=== PATIENT | female | born 1975 | race African-American/Black ===

== ENCOUNTER 2023-07-24 12:31 | Emergency (ER) | payer MEDICARE, SELFPAY ==
[2023-07-24 12:49] VITALS: BP 152/104; PULSE 93; RESP 19; TEMP 36.5; O2SAT 99
--- NOTE | 2023-07-24 13:10 | ED.GENADULT ---
HPI - General Adult General Chief complaint: Skin/Abscess/Foreign Body Stated complaint: boil forehead Time Seen by Provider: 07/24/23 13:05 Source: patient Mode of arrival: ambulatory Limitations: no limitations History of Present Illness HPI narrative: This is a 47-year-old female who presents to the ED with chief complaint of left facial pain and swelling for the past week. Reports that she started with a ?boil? to the left superior forehead. It came to a head and she was able to have that area drained. She reports subsequently there is another area of swelling to the forehead that started and the swelling seems to be spreading. However this area did not come to a head. Reports the swelling is spreading throughout the left side of the face around the eye. Reports pain throughout the left face in towards the left ear. Denies pain with eye movements. Denies fevers, chills, nausea, vomiting, vision change. Related Data Allergies Allergy/AdvReac Type Severity Reaction Status Date / Time No Known Allergies Allergy Verified 07/24/23 12:33 Review of Systems Review of Systems: All systems as dictated in HPI Exam Narrative: GENERAL: Well-appearing, well-nourished, and in no acute distress. HEAD: Normocephalic, atraumatic. EYES: PERRLA and EOMI. No pain with EOMs. ENT: Nares clear, no rhinorrhea or epistaxis. Mucous membranes moist. Oropharynx without tonsillar hypertrophy exudate or other lesions. NECK: Supple. No adenopathy or masses. CHEST: No respiratory distress. Clear to auscultation. No wheezes rales or rhonchi HEART: Regular rate and rhythm. No murmur heard. Normal peripheral pulses. ABDOMEN: Soft, nontender, nondistended, normal active bowel sounds. MSK: Normal range of motion. No edema. SKIN: Moderate warmth to the left forehead. Mild erythema. No discrete or palpable abscess. NEURO: Alert and oriented x3. No focal deficits. PSYCH: Normal mood and affect. Course Vital Signs Vital signs: Vital Signs Temperature 97.7 F 07/24/23 12:49 Pulse Rate 93 07/24/23 12:49 Respiratory Rate 19 07/24/23 12:49 Blood Pressure 152/104 H 07/24/23 12:49 Pulse Oximetry 99 07/24/23 12:49 Oxygen Delivery Room Air 07/24/23 12:49 Temperature 97.7 F 07/24/23 12:49 Pulse Rate 93 07/24/23 12:49 Respiratory Rate 19 07/24/23 12:49 Blood Pressure 152/104 H 07/24/23 12:49 Pulse Oximetry 99 07/24/23 12:49 Oxygen Delivery Room Air 07/24/23 12:49 Medical Decision Making MDM Narrative Medical decision making narrative: This is a 47-year-old female who presents to the ED for chief complaint of left-sided facial erythema, swelling and pain for the past couple of days. Reports the area is spreading throughout the face. Vitals are normal. Afebrile. Exam remarkable for the above. No pain with EOMs or difficulty with vision. Exam is consistent with periorbital cellulitis. No signs of deep space infection. Normal white count on CBC. CMP and CRP normal. She was given Toradol and a round of antibiotics IV here. She will be given prescriptions for Bactrim and cefdinir instructed to follow-up PCP. Pt will be discharged in stable condition. Return precautions given and supportive measures discussed. Pt is understanding and agreeable with plan for discharge and follow-up with PCP. Vital Signs Vital Signs: Vital Signs Temperature 97.7 F 07/24/23 12:49 Pulse Rate 93 07/24/23 12:49 Respiratory Rate 19 07/24/23 12:49 Blood Pressure 152/104 H 07/24/23 12:49 Pulse Oximetry 99 07/24/23 12:49 Oxygen Delivery Room Air 07/24/23 12:49 Temperature 97.7 F 07/24/23 12:49 Pulse Rate 93 07/24/23 12:49 Respiratory Rate 19 07/24/23 12:49 Blood Pressure 152/104 H 07/24/23 12:49 Pulse Oximetry 99 07/24/23 12:49 Oxygen Delivery Room Air 07/24/23 12:49 Lab Data 07/24/23 13:45 07/24/23 13:45 Labs: Lab Results
[2023-07-24] MEDS: KETOROLAC 15 MG/ML VIAL (*BKC) IV PUSH (13:43)
[2023-07-24 13:53] LABS: Basophils Percent Auto 0.4 % (0.2-1.2); Eosinophils Absolute Auto 0.1 K/mm3 (0-0.3); Eosinophils Percent Auto 0.6 % (0-4.4); Hematocrit 41.9 % (37.0-47.0); Hemoglobin 13.2 g/dL (12.0-15.0); Immature Granulocyte Absolute 0.02 K/mm3 (0.00-0.031); Immature Granulocyte Percent A 0.2 % (0-0.5); Lymphocytes Absolute Auto 3.15 K/mm3 (0.9-3.2); Lymphocytes Percent Auto 31.4 % (18.3-44.2); Mean Corpuscular HGB Conc 31.5 g/dl (32-36); Mean Corpuscular Volume 98.4 fl (80-100); Mean Platelet Volume 10.1 fl (7.4-10.4); Monocytes Absolute Auto 0.6 K/mm3 (0.1-0.6); Monocytes Percent Auto 5.5 % (2.6-8.5); Neutrophils Absolute Auto 6.2 K/mm3 (1.3-6.7); Neutrophils Percent Auto 61.9 % (45.5-73.1); Platelet Count Result 306 k/mm3 (150-375); Red Blood Count 4.26 M/mm3 (4.2-5.4); Red Cell Distribution Width 13.6 % (11.5-14.5)
[2023-07-24 14:29] LABS: Alanine Aminotransferase 17 U/L (6-35); Albumin Level 4.3 g/dL (3.5-5.1); Alkaline Phosphatase 60 U/L (38-126); Anion Gap 8 mmol/L (8-16); Aspartate Amino Transferase 30 U/L (14-36); Bilirubin,Total 0.9 mg/dL (0.2-1.3); Blood Urea Nitrogen 15 mg/dL (7-17); CRP 0.8 mg/dL (<1.0); Calcium 9.4 mg/dL (8.4-10.2); Carbon Dioxide 24 mmol/L (22-30); Chloride 106 mmol/L (98-107); Estimated CRCL calculation 181 ml/min; Estimated Glomerular Filt Rate > 60; Glucose 98 mg/dL (65-110); Potassium 4.2 mmol/L (3.4-5.0); Sodium 138 mmol/L (137-145)
[2023-07-24 14:45] VITALS: BP 174/109; PULSE 81; RESP 20; TEMP 36.7; O2SAT 99
== END 2023-07-24 15:02 | disposition home or self-care (01) ==
LOC: ANHED 13:32
PROVIDERS: Emergency Provider Physician Assistant
DX: L03.213 Periorbital cellulitis (principal)
CPT/HCPCS: 36415; 80053; 85025; 86140; 96365; 96375; 99284; J0696; J1885

== ENCOUNTER 2023-07-25 05:47 | Inpatient (IN) | payer MEDICARE, SELFPAY ==
[2023-07-25] VITALS (9 sets, daily range): BP systolic 143–188; BP diastolic 79–105; PULSE 63–94; RESP 16–20; TEMP 36.3–36.7; O2SAT 98–100; BMI 58.2
--- NOTE | ~2023-07-25 | CT_ITS ---
EXAMINATION: CT facial bones w con DATE: 07/25/2023 09:36 INDICATION: Left periorbital cellulitis TECHNIQUE: Computed tomography (CT) of the facial bones and maxillofacial region was performed withou t intravenous contrast. Automated exposure control and iterative reconstruction technique were employ ed. Exam dose: 817.17 mGy-cm total exam DLP. COMPARISON: None. FINDINGS: Moderately prominent left periorbital soft tissue swelling is noted. There is soft tissue i nfiltration of the left facial subcutaneous fat at posterior tissues in addition to asymmetric promin ent soft tissue thickening of the left parotid masseteric fascia. The orbital globes appear symmetric and intact. No intraconal or extraconal masses are noted. Optic n erves and extraocular muscles appear normal. No facial bone fracture or bone destruction. The frontal sinuses, ethmoid air cells, sphenoid and max illary sinuses are normally developed and aerated. IMPRESSION: Left periorbital soft tissue swelling, subcutaneous soft tissue infiltration of the left facial subcutaneous tissues and asymmetric prominent soft tissue thickening of the left parotid mass eteric fascia No orbital mass lesion Reviewed, dictated and finalized at [facility]. Reviewed, dictated and finalized at location A. MACHINE REPAIRER IMPRESSION: Left periorbital soft tissue swelling, subcutaneous soft tissue in filtration of the left facial subcutaneous tissues and asymmetric prominent sof t tissue thickening of the left parotid masseteric fascia No orbital mass lesion
--- NOTE | ~2023-07-25 | XR_ITS ---
XR chest 1V portable DATE: 07/25/2023 09:22 INDICATION: Leg edema TECHNIQUE: Portable upright AP chest on 07/25/2023 at 0911 hours COMPARISON: None FINDINGS: Cardiac and mediastinal sweats. Unremarkable for AP projection. No pulmonary infiltrate or consolidation, pleural effusion or pulmonary vascular congestion or pneumothorax is evident. Radiopaque surgical clip or marker overlying the lower lateral left chest/left breast. Degenerative spurring of the thoracic spine. IMPRESSION: No active cardiopulmonary disease Reviewed, dictated and finalized at location A. ET TEST FIRE WORKER
--- NOTE | ~2023-07-25 | US_ITS ---
EXAMINATION: US venous doppler [facility] DATE: 07/26/2023 17:31 INDICATION: Lower limb edema. TECHNIQUE: Grayscale ultrasound images without and with compression and Doppler ultrasound images of the bilateral lower extremity veins were obtained. COMPARISON: None. FINDINGS: The visualized portions of right common femoral vein, profunda (deep) femoral vein, femoral vein, pop liteal vein, peroneal veins, posterior tibial veins, and greater saphenous vein outflow are patent. The visualized portions of left common femoral vein, profunda femoral vein, femoral vein, popliteal v ein, peroneal veins, posterior tibial veins, and greater saphenous vein outflow are patent. IMPRESSION: 1. No deep venous thrombosis. Reviewed, dictated and finalized at location E.
--- NOTE | 2023-07-25 07:27 | ED.GENADULT ---
HPI - General Adult General Chief complaint: Unspecified Stated complaint: cellulitis to face Time Seen by Provider: 07/25/23 07:12 Source: patient Mode of arrival: ambulatory Limitations: no limitations History of Present Illness HPI narrative: 47 years old female complaining of left forehead boils started 1 week ago, subsequently started having swelling of the left side of the upper face including upper and lower eyelids, was seen in our emergency room yesterday and was discharged on cefdinir and sulfa, workup this morning with the left eyelid is more swollen and closed with pain moving the eyeball. Also complaining of edema lower extremity for while. Patient is healthy otherwise does not take medicine at home. Related Data Allergies Allergy/AdvReac Type Severity Reaction Status Date / Time No Known Allergies Allergy Verified 07/24/23 12:33 Review of Systems Review of Systems: All systems reviewed & are unremarkable except as noted in HPI and below Exam Narrative: General appearance: Well-developed, well-nourished Skin: Normal color, facial exam showed diffuse soreness and tenderness left forehead and left upper face, extensive swelling of the left upper and left lower eyelid, unable to open the left eye, erythematous changes Head: Normocephalic, nontraumatic Eyes: Clear conjunctiva ENT: Oropharynx normal, ears normal, nose normal Neck: Supple, nontender Chest and respiratory: Airway patent, no respiratory distress, no accessory muscle use Heart: Regular rate/rhythm Abdomen: Soft, nontender, no organomegaly, quiet bowel sounds Vascular: Normal peripheral pulses, normal capillary refill. Musculoskeletal: Normal range of motion, nontender back Neurologic: Alert and oriented ?3, GARNISHMENT SPECIALIST is normal as tested, no gross motor deficit Course Course Emergency Course: IMPROVING Vital Signs Vital signs: Vital Signs Temperature 36.3 C L 07/25/23 05:51 Pulse Rate 94 07/25/23 05:51 Respiratory Rate 20 07/25/23 05:51 Blood Pressure 188/105 H 07/25/23 05:51 Pulse Oximetry 99 07/25/23 05:51 Oxygen Delivery Room Air 07/25/23 05:51 Temperature 36.3 C L 07/25/23 05:51 Pulse Rate 72 07/25/23 06:42 Respiratory Rate 20 07/25/23 05:51 Blood Pressure 188/105 H 07/25/23 05:51 Pulse Oximetry 99 07/25/23 05:51 Oxygen Delivery Room Air 07/25/23 05:51 Medical Decision Making MDM Narrative Medical decision making narrative: PATIENT CAME BACK TO OUR EMERGENCY ROOM WITH WORSENING LEFT FACIAL PAIN, WAS SEEN IN OUR EMERGENCY ROOM YESTERDAY AND GOT DISCHARGED ON SULFA AND CEFDINIR WITH A DIAGNOSIS OF PERIORBITAL CELLULITIS. DIFFERENTIAL DIAGNOSIS PERIORBITAL CELLULITIS, ORBITAL CELLULITIS, FAILURE OF OUTPATIENT TREATMENT, PROGRESSION OF THE PERIORBITAL CELLULITIS BLOOD WORKUP TODAY SHOWED NO ACUTE ABNORMALITIES, LACTIC ACID IS NORMAL, CT FACE WITH IV CONTRAST SHOWED SOFT TISSUE SWELLING CONSISTENT WITH PERIORBITAL CELLULITIS, PATIENT WAS STARTED ON IV VANCOMYCIN AND ZOSYN, ADMIT TO HOSPITALIST. Differential Diagnosis Differential Diagnosis: ABOVE Vital Signs Vital Signs: Vital Signs Temperature 36.3 C L 07/25/23 05:51 Pulse Rate 94 07/25/23 05:51 Respiratory Rate 20 07/25/23 05:51 Blood Pressure 188/105 H 07/25/23 05:51 Pulse Oximetry 99 07/25/23 05:51 Oxygen Delivery Room Air 07/25/23 05:51 Temperature 36.3 C L 07/25/23 05:51 Pulse Rate 72 07/25/23 06:42 Respiratory Rate 20 07/25/23 05:51 Blood Pressure 188/105 H 07/25/23 05:51 Pulse Oximetry 99 07/25/23 05:51 Oxygen Delivery Room Air 07/25/23 05:51 Lab Data 07/25/23 08:26 07/25/23 08:26
--- NOTE | 2023-07-25 07:32 | ECG_ITS ---
Measurements Intervals [place] Rate: 66 P: 30 NC: 181 QRS: -4 QRSD: 88 T: 8 QT: 405 QTc: 426 Interpretive Statements SINUS RHYTHM DELAYED PRECORDIAL R/S TRANSITION NONSPECIFIC T-WAVE ABNORMALITY- ANTEROLAT/INF LEADS BORDERLINE ECG NO PREVIOUS ECG AVAILABLE FOR COMPARISON Electronically Signed On 07-25-2023 13:07:56 CLINICAL DIETITIAN by Epi Ware D.O.
[2023-07-25 08:33] LABS: Basophils Percent Auto 0.5 % (0.2-1.2); Eosinophils Absolute Auto 0.1 K/mm3 (0-0.3); Eosinophils Percent Auto 0.8 % (0-4.4); Hematocrit 41.7 % (37.0-47.0); Hemoglobin 13.5 g/dL (12.0-15.0); Immature Granulocyte Absolute 0.02 K/mm3 (0.00-0.031); Immature Granulocyte Percent A 0.3 % (0-0.5); Lymphocytes Absolute Auto 2.71 K/mm3 (0.9-3.2); Lymphocytes Percent Auto 35.2 % (18.3-44.2); Mean Corpuscular HGB Conc 32.4 g/dl (32-36); Mean Corpuscular Hemoglobin 31.7 pg (26-34); Mean Corpuscular Volume 97.9 fl (80-100); Monocytes Absolute Auto 0.4 K/mm3 (0.1-0.6); Monocytes Percent Auto 4.9 % (2.6-8.5); Neutrophils Absolute Auto 4.5 K/mm3 (1.3-6.7); Neutrophils Percent Auto 58.3 % (45.5-73.1); Platelet Count Result 280 k/mm3 (150-375); Red Blood Count 4.26 M/mm3 (4.2-5.4); Red Cell Distribution Width 13.5 % (11.5-14.5); White Blood Count 7.7 K/mm3 (4.5-10.0)
[2023-07-25 08:43] LABS: Alanine Aminotransferase 15 U/L (6-35); Albumin Level 4.3 g/dL (3.5-5.1); Alkaline Phosphatase 72 U/L (38-126); Anion Gap 8 mmol/L (8-16); Aspartate Amino Transferase 23 U/L (14-36); Bilirubin,Total 0.7 mg/dL (0.2-1.3); Blood Urea Nitrogen 14 mg/dL (7-17); Calcium 9.2 mg/dL (8.4-10.2); Carbon Dioxide 23 mmol/L (22-30); Chloride 106 mmol/L (98-107); Estimated CRCL calculation 154 ml/min; Estimated Glomerular Filt Rate > 60; Glucose 95 mg/dL (65-110); Potassium 3.8 mmol/L (3.4-5.0); Sodium 137 mmol/L (137-145)
[2023-07-25 08:49] LABS: Partial Thromboplastin Time 28.5 SECONDS (22.3-36.8)
[2023-07-25 08:56] LABS: CRP 2.8 mg/dL (<1.0); NT Pro B Type Natriuretic Pept 463 pg/mL (19.9-100)
[2023-07-25 09:24] LABS: Lactic Acid Reflex 1.1 mmol/L (0.7-2.0)
[2023-07-25 10:11] LABS: Appearance Urine Clear (Clear); Bilirubin Urine Negative (Negative); Blood Urine Negative (Negative); Color Urine Yellow (Yellow); Glucose Urine UA Negative (Negative); Ketones Urine Negative (Negative); Leukocyte Esterase Ur Negative LEU/UL (Negative); Nitrate Urine Negative (Negative); Protein Urine Negative (Negative); Urobilinogen Urine 0.2 mg/dL (<2.0)
[2023-07-25] MEDS: KETOROLAC 30 MG/ML VIAL (*BKC) IV PUSH ×2 (10:13→20:58)
[2023-07-25] MEDS: PIPERACILLN/TAZ 3.375GM/NS50ML 3.375 GM/50 ML BAG IVPB (10:17)
[2023-07-25 10:28] LABS: Add Urine Microscopic? NO; Specific Grav Ur 1.048 (1.001-1.035)
[2023-07-25] MEDS: VANCOMYCIN 1,500 MG/NS 500 ML 1,500 MG/500 ML BAG 250 MG IVPB (11:00)
[2023-07-25] MEDS: SODIUM CHLORIDE 0.9% IV 1,000 ML 125 ML IV CONT (12:49)
[2023-07-25] MEDS: ACETAMINOPHEN 325 MG TABLET 650 MG PO ×2 (12:49→23:32)
--- NOTE | 2023-07-25 12:55 | ADMGEN ---
This patient, Landon Ant Crowder, was admitted to Virtual Bed 3rd Floor-1. Patient/family oriented to hospital policies and general routines including ID bracelet, bed and alarms, visiting hours, pain management, procedures, bathroom and other care routines, personal items, smoking policy, room service/diet, and visiting hours. Information on how to activate the Rapid Response Team has been discussed. Patient/Family are encouraged to report perceived risks to care and to ask questions if they do not understand what they are told or what they should do.
--- NOTE | 2023-07-25 13:44 | PM.IMHP ---
H&P: HPI History of Present Illness Date/Time: 07/25/23 13:44 Chief Complaint: Swelling of face Narrative: 47 years old female complaining of left forehead boils started 1 week ago, subsequently started having swelling of the left side of the upper face including upper and lower eyelids, was seen in our emergency room yesterday and was discharged on cefdinir and sulfa, workup this morning with the left eyelid is more swollen and closed with pain moving the eyeball.? Also complaining of edema lower extremity for while.? Patient is healthy otherwise does not take medicine at home. Review of Systems Review of Systems: - CONSTITUTIONAL: Denies weight loss, fever and chills. - HEENT: Denies changes in vision and hearing - RESPIRATORY: Denies SOB and cough. - CV: Denies palpitations and CP. - GI: Denies abdominal pain, nausea, vomiting and diarrhea. - : Denies dysuria and urinary frequency. - MSK: Denies myalgia and joint pain. - SKIN: Denies rash and pruritus. - NEUROLOGICAL: Denies headache and syncope. - PSYCHIATRIC: Denies recent changes in mood. Denies anxiety and depression. [facility] Family History Family History (Updated 07/25/23 @ 13:04 by Honey Anderson RN) Mother Pneumonia COVID Collapsed lung Sibling Kidney failure Diabetes mellitus Father Congestive cardiac failure Diabetes mellitus Social History Social History Smoking status: Never smoker Alcohol intake: current Drinks per week: 1 Substance use: never Do You Feel Safe in your Home?: Yes Lack of Transportation: No Lack of Food: Never True Current Housing: Decline to Answer Concerned About Future Housing: No Difficulty Paying Gas/Electric Bills: No Difficulty Paying for Meds: No Currently Unemployed: No Education: Decline to Answer Difficulty w/ Childcare or Family Care: No Spiritual care concerns: No Meds Home Medications and Allergies Home Medications Medication Instructions Recorded Confirmed Type No Home Medications 07/25/23 07/25/23 History Allergies Allergy/AdvReac Type Severity Reaction Status Date / Time No Known Allergies Allergy Verified 07/24/23 12:33 Vital Signs Vital Signs - 24 hr 07/25/23 05:51 07/25/23 06:42 07/25/23 07:45 Temperature 97.4 F L 98.0 F Pulse Rate 94 72 72 Respiratory Rate 20 18 Blood Pressure 188/105 H 155/98 H Pulse Oximetry 99 100 Oxygen Delivery Room Air 07/25/23 09:30 07/25/23 11:00 07/25/23 12:25 Temperature Pulse Rate 73 70 74 Respiratory Rate 16 19 18 Blood Pressure 149/100 H 156/99 H 143/92 H Pulse Oximetry 98 98 99 Oxygen Delivery Exam Narrative: General appearance: Well-developed, well-nourished Skin: Normal color, facial exam showed diffuse soreness and tenderness left forehead and left upper face, extensive swelling of the left upper and left lower eyelid, unable to open the left eye, erythematous changes Head: Normocephalic, nontraumatic Eyes: Clear conjunctiva ENT: Oropharynx normal, ears normal, nose normal Neck: Supple, nontender Chest and respiratory: Airway patent, no respiratory distress, no accessory muscle use Heart: Regular rate/rhythm Abdomen: Soft, nontender, no organomegaly, quiet bowel sounds Vascular: Normal peripheral pulses, normal capillary refill. Musculoskeletal: Normal range of motion, nontender back Neurologic: Alert and oriented ?3, AIRSET CASTER is normal as tested, no gross motor deficit ?? H&P: Results Labs Labs: Short CBC 07/25/23 Range/Units 08:26 WBC 7.7 (4.5-10.0) K/mm3 Hgb 13.5 (12.0-15.0) g/dL Hct 41.7 (37.0-47.0) % Plt Count 280 (150-375) k/mm3 BMP 07/25/23 08:26 Sodium 137 Potassium 3.8 Chloride 106 Carbon Dioxide 23 BUN 14 Creatinine 0.60 L Glucose 95 Calcium 9.2 Liver Function 07/25/23 Range/Units 08:26 Total Bilirubin 0.7 (0.2-1.3) mg/d
[2023-07-25] MEDS: ceFAZolin 1 GM/NS 50 ML 1 GM/50 ML BAG IVPB ×2 (13:58→20:45)
[2023-07-25] MEDS: diphenhydrAMINE HCl CAP 25 MG CAPSULE PO (15:13)
[2023-07-25 17:15] LABS: Hemoglobin A1C 5.2 % (<5.7)
--- NOTE | 2023-07-26 03:54 | PC.NURSE ---
Daylight Savings Time For Daylight Savings Time Ending in the Fall - Clocks are moved back. For Daylight Savings Time Beginning in the Spring - Clocks are moved ahead. For [facility], the time of change occurs at 0200 hrs. Time is taken from the restaurant line server. This entry on the patient's chart recognizes the change in time reflected during documentation. Example: 2 entries for vital signs may be charted for 0200 hrs.
[2023-07-26 05:10] VITALS: BP 111/64; PULSE 65; RESP 18; TEMP 36.4; O2SAT 100
[2023-07-26] MEDS: ceFAZolin 1 GM/NS 50 ML 1 GM/50 ML BAG IVPB ×3 (05:27→21:12)
[2023-07-26] MEDS: diphenhydrAMINE HCl INJ 50 MG/ML VIAL 25 MG IV PUSH (05:33)
[2023-07-26 06:20] LABS: Estimated CRCL calculation 154 ml/min; Estimated Glomerular Filt Rate > 60
[2023-07-26 07:31] LABS: Hematocrit 37.4 % (37.0-47.0); Hemoglobin 11.9 g/dL (12.0-15.0); Mean Corpuscular HGB Conc 31.8 g/dl (32-36); Mean Corpuscular Hemoglobin 31.3 pg (26-34); Mean Corpuscular Volume 98.4 fl (80-100); Mean Platelet Volume 10.5 fl (7.4-10.4); Platelet Count Result 262 k/mm3 (150-375); Red Cell Distribution Width 13.6 % (11.5-14.5); White Blood Count 6.8 K/mm3 (4.5-10.0)
[2023-07-26 08:02] LABS: Alanine Aminotransferase 13 U/L (6-35); Albumin Level 3.7 g/dL (3.5-5.1); Alkaline Phosphatase 70 U/L (38-126); Anion Gap 4 mmol/L (8-16); Aspartate Amino Transferase 24 U/L (14-36); Bilirubin,Total 0.4 mg/dL (0.2-1.3); Blood Urea Nitrogen 14 mg/dL (7-17); Calcium 8.9 mg/dL (8.4-10.2); Carbon Dioxide 25 mmol/L (22-30); Chloride 106 mmol/L (98-107); Estimated CRCL calculation 154 ml/min; Estimated Glomerular Filt Rate > 60; Glucose 104 mg/dL (65-110); Magnesium 2.1 mg/dL (1.6-2.3); Potassium 3.8 mmol/L (3.4-5.0); Sodium 135 mmol/L (137-145)
[2023-07-26 08:32] LABS: CRP 2.7 mg/dL (<1.0)
--- NOTE | 2023-07-26 08:43 | PM.IMPN ---
Progress Note: A&P Assessment and Plan (1) Periorbital cellulitis of left eye: Code(s): L03.213 - Periorbital cellulitis Status: Acute Assessment and Plan: 07/25 left facial pain and edema CT noted: Left periorbital soft tissue swelling, subcutaneous soft tissue infiltration of the left facial subcutaneous tissues and asymmetric prominent soft tissue thickening of the left parotid masseteric fascia. No orbital mass lesion patient has photo documentation of the decrease in swelling labs today significant for WBC 6.8, hemoglobin 11.9, sodium 135, potassium 3.8, CRP 2.7. hemoglobin A1c 5.2 IV Ancef continued. possibly convert to p.o. 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 (3) Normal hemoglobin A1c level: Status: Acute Assessment and Plan: 07/25 hemoglobin A1c 5.2 morning glucose level 104 Time Spent With Patient Time with patient: 15 - 25 minutes Subjective Date/time seen: 07/26/23 08:43 Interval history: patient examined at bedside interval assessment as she presented to ED with facial swelling and was subsequently admitted for periorbital cellulitis. today patient expresses that swelling swelling has drastically decreased. she has photo documentation the progression of decreased swelling. patient is states that she has no pain to the eye area at this time, however she admits that her forehead and cheek area are tender. patient expressed that this swelling began to occur after appearance of 2 boils on her forehead. she is a dedicated truck driver and noted that when her eye swelled and she could not see to drive she came to the emergency room. patient also expressed that she has been experiencing bilateral lower extremity edema. Expressed that this comes and goes. patient had elevated BNP in ED of 463. bilateral lower extremity Dopplers and echo ordered. patient expressed that shes aware that she has a sedentary lifestyle, and has a family history of CHF labs today significant for WBC 6.8, hemoglobin 11.9, sodium 135, potassium 3.8, CRP 2.7. hemoglobin A1c 5.2 morning blood pressure 111/64, heart rate 65, temperature 97.6?, O2 saturation 100% room air Review of Systems Review of Systems: All systems reviewed & are unremarkable except as noted in HPI and below Exam Narrative: General appearance: Well-developed, well-nourished, alert Skin: Normal color, facial exam showed diffuse soreness and tenderness left forehead and left upper face, noted swelling of the left upper eyelid, able to open the left eye Head: Normocephalic, nontraumatic Eyes: Clear conjunctiva, EOMI, ENT: Oropharynx normal, ears normal, nose normal Neck: Supple, nontender Chest and respiratory: lungs clear to auscultate bilaterally, no respiratory distress, no accessory muscle use Heart: Regular rate/rhythm Abdomen: Soft, nontender, no organomegaly, quiet bowel sounds Vascular: Normal peripheral pulses, normal capillary refill. +1 bilateral lower extremity edema Musculoskeletal: Normal range of motion, nontender back Neurologic: Alert and oriented ?3, MANAGER OF INTERNATIONAL 2-12 intact, no gross motor deficit ?? Objective Data Vital Signs Vital Signs: Vital Signs - 24 hr 07/25/23 07:45 07/25/23 09:30 07/25/23 11:00 Temperature 98.0 F Pulse Rate 72 73 70 Respiratory Rate 18 16 19 Blood Pressure 155/98 H 149/100 H 156/99 H Pulse Oximetry 100 98 98 Oxygen Delivery 07/25/23 12:25 07/25/23 13:14 07/25/23 15:45 Temperature 97.5 F L Pulse Rate 74 63 Respiratory Rate 18 16 Blood Pressure 143/92 H 144/89 H Pulse Oximetry 99 100 Oxyg
[2023-07-26] MEDS: ENOXAPARIN 40 MG/0.4 ML SYRINGE SUB-Q (09:34)
[2023-07-26 13:51] VITALS: BP 151/92; PULSE 83; RESP 20; TEMP 36.6; O2SAT 96
[2023-07-26] MEDS: diphenhydrAMINE HCl CAP 25 MG CAPSULE PO (17:20)
[2023-07-26 19:55] VITALS: BP 159/96; PULSE 75; RESP 18; TEMP 36.5; O2SAT 99
[2023-07-26] MEDS: KETOROLAC 30 MG/ML VIAL (*BKC) IV PUSH (21:12)
--- NOTE | 2023-07-27 | ECHO_ITS ---
Patient Info Name: Landon Crowder Age: 47 years : 1975 Gender: Female Ht: 66 in Wt: 361 lbs BSA: 2.87 m2 HR: 78 bpm BP: 137 / 65 mmHg Technical Quality: Poor, Fair Exam Date: 07/27/2023 9:33 AM Exam Location: Echo Lab Exam Room: 302 Patient Status: Inpatient Admit Date: 07/25/2023 Staff Ordering Physician: Keturah Barba APRN Inside Sales Trainer: Yancy Santiago RDCS Attending Provider: González Matthew MD Exam Type: CA echo dop color flow w con Study Info Indications - ELEVATED BNP EDEMA Complete two-dimensional, color flow and Doppler transthoracic echocardiogram is performed with contrast to opacify the left ventricle and to improve the deliniation of the left ventricle endocardial borders. Contrast/Agitated Saline Contrast/Ag. Saline: Definity Amount: 2.00 ml Administered By: Yancy Santiago [facility] Existing IV Access: Yes IV Access Condition: patent with no signs of infiltration Reason for Poor Study: patient body habitus Summary 1. Definity contrast administered improved wall motion interpretation. 2. Left ventricular chamber dimension is normal. 3. Left ventricular systolic function is normal, estimated at 60-65%. 4. The left ventricular diastolic function is grade I diastolic dysfunction. 5. E/e' 8 is minimally elevated. 6. There is mild mitral valve regurgitation. 7. There is trace tricuspid valve regurgitation. 8. No pulmonary hypertension, estimated pulmonary arterial systolic pressure is 32 mmHg. Left Ventricle E/e' 8 is minimally elevated. Definity contrast administered improved wall motion interpretation. Left ventricular chamber dimension is normal. Left ventricular systolic function is normal, estimated at 60-65%. The left ventricular diastolic function is grade I diastolic dysfunction. Right Ventricle Right ventricular chamber dimension is normal. Right ventricular systolic function is normal. Left Atria Left atrial chamber dimension is normal. Right Atria Right atrial chamber dimension is normal. Aortic Valve The aortic valve is trileaflet. There is no aortic valve stenosis. There is no aortic valve regurgitation. Pulmonic Valve There is no pulmonic regurgitation. Mitral Valve There is no mitral valve stenosis. There is mild mitral valve regurgitation. Tricuspid Valve There is trace tricuspid valve regurgitation. No pulmonary hypertension, estimated pulmonary arterial systolic pressure is 32 mmHg. Pericardium/Pleural There is no pericardial effusion. Inferior Vena Cava Normal inferior vena cava with >50% collapse upon inspiration consistent with normal right atrial pressure, 5 mmHg. Aorta The aortic root size at the sinus of Valsalva is normal. Left Ventricular Outflow Tract Name Value Normal LVOT 2D LVOT Diameter 2.10 cm LVOT Doppler LVOT Peak Gradient 5 mmHg LVOT Mean Gradient 3 mmHg LVOT VTI 23.35 cm LVOT VTI/AV VTI Ratio 0.84 LVOT Stroke Volume 80.55 ml LVOT CO 16.08 l/min LVOT CI
[2023-07-27 00:05] LABS: Vancomycin Trough < 5.0 ug/mL (10.0-20.0)
[2023-07-27 04:30] VITALS: BP 137/65; PULSE 66; RESP 20; TEMP 36.3; O2SAT 100
[2023-07-27] MEDS: ceFAZolin 1 GM/NS 50 ML 1 GM/50 ML BAG IVPB ×2 (04:53→13:44)
[2023-07-27] MEDS: ACETAMINOPHEN 325 MG TABLET 650 MG PO (04:55)
[2023-07-27 06:25] LABS: Hemoglobin 11.8 g/dL (12.0-15.0); Mean Corpuscular HGB Conc 31.9 g/dl (32-36); Mean Corpuscular Hemoglobin 31.3 pg (26-34); Mean Corpuscular Volume 98.1 fl (80-100); Mean Platelet Volume 10.2 fl (7.4-10.4); Platelet Count Result 259 k/mm3 (150-375); Red Blood Count 3.77 M/mm3 (4.2-5.4); Red Cell Distribution Width 13.6 % (11.5-14.5); White Blood Count 6.2 K/mm3 (4.5-10.0)
[2023-07-27 06:44] LABS: Alanine Aminotransferase 12 U/L (6-35); Albumin Level 3.6 g/dL (3.5-5.1); Alkaline Phosphatase 67 U/L (38-126); Anion Gap 2 mmol/L (8-16); Aspartate Amino Transferase 20 U/L (14-36); Bilirubin,Total 0.4 mg/dL (0.2-1.3); Blood Urea Nitrogen 22 mg/dL (7-17); Calcium 8.7 mg/dL (8.4-10.2); Carbon Dioxide 27 mmol/L (22-30); Chloride 106 mmol/L (98-107); Estimated CRCL calculation 154 ml/min; Estimated Glomerular Filt Rate > 60; Glucose 101 mg/dL (65-110); Magnesium 2.1 mg/dL (1.6-2.3); Potassium 3.9 mmol/L (3.4-5.0); Sodium 135 mmol/L (137-145)
[2023-07-27 07:52] LABS: CRP 1.9 mg/dL (<1.0)
[2023-07-27] MEDS: ENOXAPARIN 40 MG/0.4 ML SYRINGE SUB-Q (08:38)
[2023-07-27] MEDS: PERFLUTREN LIPID MICROSPHERES 1.5 ML VIAL DILUTED TO 10 ML TOTAL VOLUME IV PUSH (09:30)
--- NOTE | 2023-07-27 12:17 | IVDEFINITY ---
Prior to administration of IV Definity the patient was educated on the risks and benefits of the imaging enhancing agent including potential adverse side effects. The patient verbalized understanding. Allergies were verified. No exclusion criteria were identified and at least one of the following inclusion criteria were met: 1) physician request, 2) patient technically difficult to image (per the [place] [employer]ocardi[employer] guidelines of two or more segments not discernable within the apical view), or 3) questionable left ventricular function. ?
[2023-07-27 14:00] VITALS: BP 147/95; PULSE 67; RESP 18; TEMP 36.1; O2SAT 100
--- NOTE | 2023-07-27 14:46 | P.DS_ITS ---
DS: Admitting Diagnosis Discharge Date 07/27/23 Admitting Diagnosis periorbital cellulitis DS: Discharge Diagnosis Discharge Diagnosis (1) Periorbital cellulitis of left eye: Code(s): L03.213 - Periorbital cellulitis Status: Acute Assessment and Plan: 07/25 * left facial pain and edema * CT noted: Left periorbital soft tissue swelling, subcutaneous soft tissue infiltration of the left facial subcutaneous tissues and asymmetric prominent soft tissue thickening of the left parotid masseteric fascia. No orbital mass lesion * patient has photo documentation of the decrease in swelling * labs today significant for WBC 6.8, hemoglobin 11.9, sodium 135, potassium 3.8, CRP 2.7. hemoglobin A1c 5.2 * IV Ancef continued. possibly convert to p.o. tomorrow 07/26 * patient denies further pain, note some tenderness to left face at forehead site where the initial boil was present * edema has drastically decreased * patient's EOMI, sclera clear, vision intact * blood cultures pending- preliminary results show no growth * labs today significant for WBC 6.2, hemoglobin 11.8, sodium 135, potassium 3.9, CRP 1.9 * IV Ancef converted to cephalexin 500 mg Q6hr which she will continue for 4 more days at discharge today * patient will discharge home today, educated on signs and symptoms, patient verbalized understanding to follow-up with PCP (2) Edema: Code(s): R60.9 - Edema, unspecified Status: Acute Assessment and Plan: 07/25 * patient has 1+ bilateral extremity edema * patient expressed that this occurs often as 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 07/26 * trace edema today * bilateral lower extremity Dopplers negative for DVT * echo resulted noted:Left ventricular chamber dimension is normal. Left ventricular systolic function is normal, estimated at 60-65%. The left ventricular diastolic function is grade I diastolic dysfunction. * patient will discharged home today, education provided, patient verbalized understanding to follow-up with PCP (3) Normal hemoglobin A1c level: Status: Acute Assessment and Plan: 07/25 * hemoglobin A1c 5.2 * morning glucose level 104 07/26 * morning glucose 101 * patient discharged home today, education provided, patient verbalized understanding to follow-up with PCP DS: Summary Hospital Course Reason for hospitalization: periorbital cellulitis Hospital Course: History of Present Illness HPI narrative: 47 years old female complaining of left forehead boils started 1 week ago, subsequently started having swelling of the left side of the upper face including upper and lower eyelids, was seen in our emergency room yesterday and was discharged on cefdinir and sulfa, workup this morning with the left eyelid is more swollen and closed with pain moving the eyeball. Also complaining of edema lower extremity for while. Patient is healthy otherwise does not take medicine at home. (1) Periorbital cellulitis of left eye: Code(s): L03.213 - Periorbital cellulitis Status: Acute Plan This is a 47-year-old female was recently seen in the ER yesterday with left facial pain that discharged on all fine cefdinir with diagnosis of periorbital cellulitis. Present back to the ER with worsening pain vitals were stable except for elevated blood pressure WBC count is normal renal function is good lactate is 1
--- NOTE | 2023-07-27 14:46 | PM.DS ---
DS: Admitting Diagnosis Discharge Date 07/27/23 Admitting Diagnosis periorbital cellulitis DS: Discharge Diagnosis Discharge Diagnosis (1) Periorbital cellulitis of left eye: Code(s): L03.213 - Periorbital cellulitis Status: Acute Assessment and Plan: 07/25 left facial pain and edema CT noted: Left periorbital soft tissue swelling, subcutaneous soft tissue infiltration of the left facial subcutaneous tissues and asymmetric prominent soft tissue thickening of the left parotid masseteric fascia. No orbital mass lesion patient has photo documentation of the decrease in swelling labs today significant for WBC 6.8, hemoglobin 11.9, sodium 135, potassium 3.8, CRP 2.7. hemoglobin A1c 5.2 IV Ancef continued. possibly convert to p.o. tomorrow 07/26 patient denies further pain, note some tenderness to left face at forehead site where the initial boil was present edema has drastically decreased patient's EOMI, sclera clear, vision intact blood cultures pending- preliminary results show no growth labs today significant for WBC 6.2, hemoglobin 11.8, sodium 135, potassium 3.9, CRP 1.9 IV Ancef converted to cephalexin 500 mg Q6hr which she will continue for 4 more days at discharge today patient will discharge home today, educated on signs and symptoms, patient verbalized understanding to follow-up with PCP (2) Edema: Code(s): R60.9 - Edema, unspecified Status: Acute Assessment and Plan: 07/25 patient has 1+ bilateral extremity edema patient expressed that this occurs often as 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 07/26 trace edema today bilateral lower extremity Dopplers negative for DVT echo resulted noted:Left ventricular chamber dimension is normal. Left ventricular systolic function is normal, estimated at 60-65%. The left ventricular diastolic function is grade I diastolic dysfunction. patient will discharged home today, education provided, patient verbalized understanding to follow-up with PCP (3) Normal hemoglobin A1c level: Status: Acute Assessment and Plan: 07/25 hemoglobin A1c 5.2 morning glucose level 104 07/26 morning glucose 101 patient discharged home today, education provided, patient verbalized understanding to follow-up with PCP DS: Summary Hospital Course Reason for hospitalization: periorbital cellulitis Hospital Course: History of Present Illness HPI narrative: 47 years old female complaining of left forehead boils started 1 week ago, subsequently started having swelling of the left side of the upper face including upper and lower eyelids, was seen in our emergency room yesterday and was discharged on cefdinir and sulfa, workup this morning with the left eyelid is more swollen and closed with pain moving the eyeball. Also complaining of edema lower extremity for while. Patient is healthy otherwise does not take medicine at home. (1) Periorbital cellulitis of left eye: Code(s): L03.213 - Periorbital cellulitis Status: Acute Plan This is a 47-year-old female was recently seen in the ER yesterday with left facial pain that discharged on all fine cefdinir with diagnosis of periorbital cellulitis. Present back to the ER with worsening pain vitals were stable except for elevated blood pressure WBC count is normal renal function is good lactate is 1.1 CRP elevated 2.8 chest x-ray with no acute cardiopulmonary disease facial CT was done which showed left periorbital soft tissue swelling subcutaneous soft tissue infiltration of the left PICC units tissues and asymmetric prominent left soft tissue thickening of the left mesenteric fossa normal vital mass lesion noted. Admitted for failed outpatient therapy. IV vancomycin initiated we will swit
--- NOTE | 2023-08-03 09:30 | PC.NURSE ---
Blood cx are negative.
== END 2023-07-27 16:41 | disposition home or self-care (01) | DRG 603 ==
LOC: ANHED 10:38 → ANH3MEDSUR 12:17
PROVIDERS: Emergency Medicine; Nurse Practitioner Family; Admitting Provider Internal Medicine; Emergency Provider Emergency Medicine; Visit Provider Internal Medicine
DX: L03.213 Periorbital cellulitis (principal); Z68.43 Body mass index [BMI] 50.0-59.9, adult; R60.9 Edema, unspecified; E66.01 Morbid (severe) obesity due to excess calories
CPT/HCPCS: 36415; 70487; 71045; 80053; 80202; 81003; 82565; 83036; 83605; 83735; 83880; 85025; 85027; 85730; 86140; 87040; 93005; 93970; 96365; 96366; 96368; 96375; 99284; 99285; A9270; C8929; G0378; J0690; J0696; J1200; J1650; J1885; J2543; J3370; J7030; Q9957; Q9967